=== PATIENT | female | born 1945 | race Caucasian/White ===

== ENCOUNTER 2018-01-08 15:30 | Outpatient (CLI) | payer MEDICARE | END 2018-01-08 15:31 | disposition home or self-care (01) | LOC: BICMAMMO 15:30 | PROVIDERS: ATTEND Internal Medicine | DX: Z12.31 Encounter for screening mammogram for malignant neoplasm of breast (principal); R92.1 Mammographic calcification found on diagnostic imaging of breast | CPT/HCPCS: 77063; 77067 ==

== ENCOUNTER 2018-05-04 16:22 | Emergency (ER) | payer MEDICARE ==
[2018-05-04] MEDS ORDERED: predniSONE 20 MG TAB ONE (16:43)
== END 2018-05-04 17:32 | disposition home or self-care (01) ==
LOC: SCSER 16:22
DX: J44.1 Chronic obstructive pulmonary disease with (acute) exacerbation (principal); E03.9 Hypothyroidism, unspecified; M19.90 Unspecified osteoarthritis, unspecified site; Z87.891 Personal history of nicotine dependence; Z79.899 Other long term (current) drug therapy
CPT/HCPCS: 94640; J7506; J7620

== ENCOUNTER 2018-05-27 11:10 | Outpatient (CLI) | payer MEDICARE ==
--- NOTE | 2018-05-27 11:25 | RAD ---
TWO VIEWS CHEST: Comparison: 05-04-18 History: Dyspnea. FINDINGS: Two views of the chest shows a normal sized cardiomediastinal silhouette. There is a calcified granul ravin projecting over the left upper lobe. There is no evidence of consolidation, mass or pleural effus ions. Hyperexpansion of the lungs may be secondary to COPD. IMPRESSION: No evidence of acute cardiopulmonary disease. POS: [facility]
== END 2018-05-27 11:11 | disposition home or self-care (01) ==
LOC: RAD 11:10
PROVIDERS: ATTEND Internal Medicine Critical Care Medicine
DX: R06.00 Dyspnea, unspecified (principal)
CPT/HCPCS: 71046

== ENCOUNTER 2018-06-13 10:50 | Outpatient (CLI) | payer MEDICARE ==
--- NOTE | 2018-06-13 12:26 | RAD ---
CHEST PA AND LATERAL: HISTORY: Dyspnea. FINDINGS: 05/27/2018 FINDINGS: Changes of COPD are again seen. Evidence of old granulomatous disease is redemonstrated. The heart size is normal. The aorta is tortuous. No focal areas of consolidation, pneumothorax, or pleural ef fusions are seen. IMPRESSION: Chronic obstructive pulmonary disease. No acute process. POS: [facility]
== END 2018-06-13 10:51 | disposition home or self-care (01) ==
LOC: RAD 10:50
PROVIDERS: ATTEND Internal Medicine Critical Care Medicine
DX: R06.00 Dyspnea, unspecified (principal); J44.9 Chronic obstructive pulmonary disease, unspecified
CPT/HCPCS: 71046

== ENCOUNTER 2019-03-10 09:20 | Outpatient (CLI) | payer MEDICARE ==
--- NOTE | 2019-03-10 12:43 | CT ---
CT OF CHEST PERFORMED WITHOUT CONTRAST ENHANCEMENT: HISTORY: Followup of lung nodule. COMPARISON: A portable chest exam of 07/22/2018 which showed nodular densities in both lung bases. No previous CT s are available for comparison. FINDINGS: There are marked emphysematous lung changes. There are nodular parenchymal changes within the more p osterior segment of the right upper lobe best seen on axial image 48. In addition, there is a more a nterior segment slightly spiculated-appearing 6-7 mm nodule seen in the right upper lobe axial image 43. Within the superior segment of the left lower lobe is an 8-9 mm nodule seen on axial image 65 and a 2 nd 7 mm pleural-based nodule also seen in the left lower lobe on axial image 75. I do not see any de finite nodular density that would correspond to the chest x-ray finding. No significant mediastinal or hilar adenopathy. The visualized liver parenchyma shows no focal findi ngs. A nonobstructing upper pole left renal calculus measuring 4-5 mm is present. IMPRESSION: 1. Severe chronic obstructive pulmonary disease type change. 2. Bilateral pulmonary nodules. These are small but definite warrant followup. I would recommend a short term followup at 6 months for assessment. POS: [facility]
== END 2019-03-10 09:21 | disposition home or self-care (01) ==
LOC: BICCT 09:20
PROVIDERS: ATTEND Internal Medicine Critical Care Medicine
DX: R91.8 Other nonspecific abnormal finding of lung field (principal); J44.9 Chronic obstructive pulmonary disease, unspecified
CPT/HCPCS: 71250

== ENCOUNTER 2019-04-16 10:22 | Outpatient (CLI) | payer MEDICARE ==
--- NOTE | 2019-04-16 12:07 | RAD ---
PA AND LATERAL VIEWS CHEST: Date: 04/16/19 HISTORY: Dyspnea. FINDINGS: Comparison made with exam of 07/18/18. Changes of COPD and old granulomatous disease are again seen. The heart size is normal and the aorta is tortuous. Lungs are expanded without lobar consolidation, pneumothoraces, or pleural effusions. [place] structures are stable. IMPRESSION: Stable exam. No acute process. POS: [facility]
== END 2019-04-16 10:23 | disposition home or self-care (01) ==
LOC: RAD 10:22
PROVIDERS: ATTEND Internal Medicine Critical Care Medicine
DX: R06.00 Dyspnea, unspecified (principal)
CPT/HCPCS: 71046

== ENCOUNTER 2019-09-10 09:31 | Outpatient (CLI) | payer MEDICARE ==
--- NOTE | 2019-09-10 10:22 | CT ---
CT OF THE THORAX WITHOUT IV CONTRAST INDICATION: Follow-up pulmonary nodule. COMPARISON: CT of the thorax dated March 10, 2019 and January 26, 2009 FINDINGS: LUNGS: 1. The spiculated pulmonary nodule within the posterior segment of the right upper lobe on image 73 o f series 8 is stable in size measuring 9 mm. The surrounding scar is similar appearing. 2. The 6 mm spiculated pulmonary nodule within the anterior segment of the right upper lobe is stable on image 69 of series 8. 3. The stellate pleural parenchymal scarring involving the left lung apex on image 41 of series 8 is stable. 4. The 8 mm spiculated pulmonary nodule in the superior segment of the left lower lobe on image 90 of series 8 is stable. 5. The 6.5 mm subpleural pulmonary nodule within the superior segment of the left lower lobe on image 101 of series 8 has been stable since 2008 and is benign. 6. The bronchiectasis involving the right middle lobe with subpleural scarring is stable. No suspicio us pulmonary nodule seen within the right lower lobe. Small sub-4 mm pulmonary nodule within the medial segment of the right middle lobe on image 134 series 8 is stable. 7. Calcified granuloma of the superior lingula is stable. 8. There is stable moderate to severe emphysema. Pleural spaces: Clear Lymph nodes: No pathologically enlarged lymph nodes. There is a calcified left hilar lymph nodes pres ent. Heart and great vessels: There are coronary artery and thoracic aortic calcifications. Upper abdomen: Visualized aspects of the upper abdomen appear within normal limits. Osseous structures: No acute osseous abnormality. IMPRESSION: 1. Stable scattered pulmonary nodules. Follow-up CT of the thorax in 6 months is recommended to docum ent stability. 2. Stable moderate to severe emphysema. 3. Findings of prior granulomatous disease.
== END 2019-09-10 09:32 | disposition home or self-care (01) ==
LOC: BICCT 09:31
PROVIDERS: ATTEND Internal Medicine Critical Care Medicine
DX: R91.8 Other nonspecific abnormal finding of lung field (principal); J43.9 Emphysema, unspecified
CPT/HCPCS: 71250

== ENCOUNTER 2020-11-17 08:10 | Outpatient (CLI) | payer MEDICARE | END 2020-11-17 08:11 | disposition home or self-care (01) | LOC: BICCT 08:10 | PROVIDERS: ATTEND Internal Medicine Critical Care Medicine | DX: R91.8 Other nonspecific abnormal finding of lung field (principal); J44.9 Chronic obstructive pulmonary disease, unspecified; I70.90 Unspecified atherosclerosis | CPT/HCPCS: 71250 ==

== ENCOUNTER 2021-07-06 10:52 | Outpatient (CLI) | payer MEDICARE | END 2021-07-06 10:53 | disposition home or self-care (01) | LOC: RAD 10:52 | PROVIDERS: ATTEND Internal Medicine Critical Care Medicine | DX: R06.00 Dyspnea, unspecified (principal) | CPT/HCPCS: 71046 ==